=== PATIENT | male | born 1960 | race African-American/Black ===

== ENCOUNTER → 2023-07-31 | Outpatient (CLI) | payer OTHER ==
--- NOTE | 2023-07-31 14:48 | CT ---
EXAMINATION TYPE: CT brain wo con DATE OF EXAM: 07/31/2023 COMPARISON: None HISTORY: fell off ladder x [address] DLP: 1014.[address] of the brain was performed. The ventricles, basal cisterns and sulci overlying the cerebral convexities demonstrate mild enlargem ent. There is no evidence for intracranial hemorrhage or sulcal effacement. There is decreased attenuation about the periventricular white matter and deep white matter of both c erebral hemispheres, compatible with chronic small vessel ischemia. Differential diagnosis does inclu de demyelination. No mass effects are seen.No midline shift. Osseous calvarium is intact. If symptoms persist consider MRI. IMPRESSION: 1. Age related atrophic and chronic small vessel ischemic change without acute intracranial process s een at this time.
== END | disposition home or self-care (01) ==
LOC: RADCTMAIN 14:27
PROVIDERS: ATTEND Neurological Surgery
DX: S06.5XAA Traumatic subdural hemorrhage with loss of consciousness status unknown, initial encounter (principal); G31.9 Degenerative disease of nervous system, unspecified
CPT/HCPCS: 70450

== ENCOUNTER → 2024-02-09 | Outpatient (CLI) | payer OTHER ==
--- NOTE | 2024-02-09 09:45 | MR ---
MRI brain and lumbar spine without contrast. HISTORY: Abnormal gait, head injury and difficulty with speech. COMPARISON: None. TECHNIQUE: Multiecho multiplanar images of the brain and lumbar spine were obtained without contrast. FINDINGS: MRI BRAIN: On the T1-weighted sagittal images the midline structures including the craniovertebral junction rela tionships are normal. The ventricles, basal cisterns and sulci over convexities are within normal limits and there is no ma ss effect or shift of midline structures. There is mild to moderate multifocal areas of abnormal increased signal intensity in the white matter of both cerebral hemispheres and within the midbrain and medulla consistent with chronic ischemic wh ite matter demyelination. On the diffusion-weighted images, there is no diffusion restriction or acut e ischemic event. On the susceptibility weighted images. There are no microhemorrhages. Intraorbital contents appear no rmal and symmetric. Visualized paranasal sinuses and mastoid air cells are well aerated. There are mild chronic inflammat ory changes in the sphenoid and ethmoid sinuses. MRI lumbar spine There is a severe compression fracture of L1 with mild retropulsion of approximately 10%. Conus medul lopez and cauda equina appear normal. The L2-L5 vertebral segments are normal in height. There is a slight anterolisthesis of L4 on L5. The disc spaces are well preserved throughout the lumbar region and there is no lumbar disc herniation. Secondary to circumferential disc bulge, marked facet hypertrophy and thickening of ligamentum flavum , there is a moderate spinal stenosis at L4-5 level. There is severe neural foraminal stenosis at the L4-5 level bilaterally, right slightly greater than left. There is mild neural foraminal stenosis at the at the L2-3 and L3-4 levels on the right. IMPRESSION: 1. Mild to moderate chronic ischemic white matter changes as described above. 2. No acute ischemic event intracranially. 3. No mass, mass effect or shift in midline structures. 4. Severe compression fracture of L1 with mild retropulsion but normal conus medullaris and cauda equ kya. 5. Grade 1 anterolisthesis of L4 on L5. 6. Moderate spinal stenosis at the L4-5 level and severe neuroforaminal stenosis at the L4-5 level bi laterally 7. No significant degenerative disc disease and no lumbar disc herniation. 8. Severe facet arthropathy at the L4-5 level. [facility], , 02/09/2024 9:43 AM
== END | disposition home or self-care (01) ==
LOC: RADMRIMAIN 08:16
PROVIDERS: ATTEND Neurological Surgery
DX: I67.82 Cerebral ischemia (principal); M48.56XA Collapsed vertebra, not elsewhere classified, lumbar region, initial encounter for fracture; M47.26 Other spondylosis with radiculopathy, lumbar region; M99.73 Connective tissue and disc stenosis of intervertebral foramina of lumbar region; M43.16 Spondylolisthesis, lumbar region
CPT/HCPCS: 70551; 72148

== ENCOUNTER → 2024-04-02 | Outpatient (CLI) | payer OTHER ==
--- NOTE | 2024-04-03 11:20 | MR ---
EXAMINATION TYPE: MR cspine/tspine wo con DATE OF EXAM: 04/02/2024 8:27 AM COMPARISON: None. CLINICAL INDICATION: Male, 63 years old with history of M54.12 M54.6, Neck and back pain, headaches, RUE radic, hx of 12 foot fall off ladder. TECHNIQUE: Multiplanar multiecho imaging on a 3.0 Karime magnet is performed through the cervical spin e. IV Contrast: mL (None, if empty) FINDINGS: The craniovertebral junction is normal. Vertebral body alignment is normal. Signal withi n the spinal cord appears normal. C7-T1: Broad-based disc bulge is present with moderate anterior thecal sac flattening. No cord conta ct is evident. No spinal canal stenosis is present. Neural foramen appear patent.. C6-7: Broad-based disc bulges mild anterior thecal sac compression. No cord contact is evident. No sp inal canal stenosis. Uncovertebral joint hypertrophy is present with moderate foraminal narrowing. C5-6: Mild disc bulge with anterior thecal sac flattening. This may be slightly greater in the left p aracentral towards lateral direction. No spinal canal stenosis or cord contact is evident. Uncoverteb ral joint atrophy is moderate left and mild right foraminal narrowing. C4-5: Broad-based disc bulge is moderate anterior thecal sac flattening. This comes in close approxim ation with spinal cord. No cord deformity is evident. No spinal canal stenosis. Moderate right forami nal narrowing from uncovertebral joint hypertrophy is present. C3-4: Broad-based disc bulge is mild anterior thecal sac flattening. This comes in close approximatio n of the spinal cord. No AP spinal canal stenosis is present. No cord deformity is evident. C2-3: No focal disc herniation or significant disc bulge is evident. No spinal canal stenosis or rosita ral foraminal stenosis is present. IMPRESSION: 1. Broad-based disc bulging greater lower cervical spine with mild to moderate anterior thecal sac co mpression. No spinal canal stenosis present. 2. There is some foraminal narrowing from uncovertebral joint hypertrophy and disc bulging discussed above. This appears greatest right C4-5, left C5-6, bilateral C6-7. EXAMINATION TYPE: MR kaelynine/andersonine wo con DATE OF EXAM: 04/02/2024 8:27 AM COMPARISON: None. CLINICAL INDICATION: Male, 63 years old with history of M54.12 M54.6, Neck and back pain, headaches, RUE radic, hx of 12 foot fall off ladder. TECHNIQUE: Multiplanar, multiecho imaging on a 3.0 Karime magnet is performed through the thoracic spi ne. IV Contrast: mL (None, if empty) FINDINGS: Spinal cord maintains normal signal through its visualized course. Cord appears to terminate below th e L1-2 disc level Vertebral body alignment is normal. Vertebral body heights are preserved. Mild diffuse narrowing of disc height is present throughout the mid thoracic spine. T7-8: There is a right paracentral disc bulging with mild anterior thecal sac compression. No spinal canal stenosis is evident. No cord contact is evident. Disc hydration levels are preserved. L1: There is a severe compression deformity. Some posterior wall displacement is present measuring 0. 5 cm from the superior posterior wall. This has cord contact is minimal cord flattening may be presen t. AP spinal canal stenosis is not present. T12-L1 and L1-2 foramen appear patent. No spinal canal stenosis is evident. IMPRESSION: 1. Compression deformity of L1 with 0.5 cm posterior wall displacement from the superior endplate. Th is may have cord contact is minimal cord flattening. AP spinal canal stenosis not present. 2. Mild degenerative disc change mid thoracic spine, greatest in the mid thoracic spine. 3. Mild right paracentral disc bulge without cord contact disseminate. [facility], , 04/03/2024 11:17 AM
== END | disposition home or self-care (01) ==
LOC: RADMRIMAIN 07:14
PROVIDERS: ATTEND Neurological Surgery
DX: M50.10 Cervical disc disorder with radiculopathy, unspecified cervical region (principal); M51.26 Other intervertebral disc displacement, lumbar region; M48.56XA Collapsed vertebra, not elsewhere classified, lumbar region, initial encounter for fracture
CPT/HCPCS: 72141; 72146